=== PATIENT | male | born 1980 | race Caucasian/White ===

== ENCOUNTER → 2020-08-25 | Emergency (ER) | payer BC, OTHER ==
[~2020-08-25] VITALS: Ht 177.8 cm; Wt 92.7 kg
[~2020-08-25] MED LIST: LIDOcaine 1% W/epiNEPHrine 1:200,000 10ml vial IJ ONE; TETanus/Pertussis (Acell)/Diphther VAC/PF (Tdap-Adult) 0.5ml syringe IMVAC ONE
[2020-08-25 00:13] VITALS: BP 139/95
--- NOTE | 2020-08-25 00:23 | NUR ---
Parents phone number [phone]
--- NOTE | 2020-08-25 00:52 | NUR ---
JODY [phone] CALL WHEN PT IS DISCHARGED FOR RIDE.
== END | disposition home or self-care (01) ==
LOC: ER 00:07
DX: S61.211A Laceration without foreign body of left index finger without damage to nail, initial encounter (principal); F10.129 Alcohol abuse with intoxication, unspecified; S80.211A Abrasion, right knee, initial encounter; V29.49XA Motorcycle driver injured in collision with other motor vehicles in traffic accident, initial encounter; Y93.89 Activity, other specified; Y92.488 Other paved roadways as the place of occurrence of the external cause; Y99.8 Other external cause status; Y90.0 Blood alcohol level of less than 20 mg/100 ml
CPT/HCPCS: 12001; 90715; 99283